=== PATIENT | male | born 1965 | race African-American/Black ===

== ENCOUNTER 2017-06-03 19:18 | Inpatient (IN) | payer OTHER ==
[~2017-06-03] VITALS: Ht 182.9 cm; Wt 97.1 kg
[2017-06-03 22:05] LABS: BASOPHIL % 0.4 % (0-2); PLATELET COUNT 192 x10^3mcL (130-400); RED CELL DISTRIBUTION WIDTH 14.4 % (11.5-14.5)
[2017-06-03 22:14] LABS: AMPHETAMINE QUAL UR NONE DETECTED (NEG <=1000)
[2017-06-03 22:15] LABS: CALCIUM 8.3 mg/dL (8.5-10.1); CARBON DIOXIDE 27.6 mmol/L (21-32); CHLORIDE SERUM 106 mmol/L (98-107); CREATININE SERUM 0.8 mg/dL (0.7-1.3); GFR1 > 60 mL/min; GLUCOSE SERUM 86 mg/dL (74-106); POTASSIUM SERUM 3.8 mmol/L (3.5-5.1); SODIUM SERUM 138 mmol/L (136-145)
[2017-06-03 22:28] LABS: ALKALINE PHOSPHATASE 44 U/L (46-116); ALT/SGPT 33 U/L (16-63); AST/SGOT 19 U/L (15-37); BILIRUBIN TOTAL 0.3 mg/dL (0.20-1.00); FREE T4 1.25 ng/dL (0.76-1.46); TOTAL PROTEIN, SERUM 6.6 g/dL (6.4-8.2)
[2017-06-03 22:30] LABS: ALBUMIN 3.3 g/dL (3.4-5.0)
[2017-06-04] MEDS ORDERED: COG1 PO (03:51)
[2017-06-04] MEDS ORDERED: ZYPREXA5 M1 PO (03:52)
[2017-06-04] MEDS ORDERED: RISPERDAL2 M1 PO (03:53)
[2017-06-04] MEDS ORDERED: TRAZODONE50 M1 PO (03:54)
[2017-06-04] MEDS ORDERED: ZOLOFT50 MG PO (03:57)
[2017-06-04 05:37] LABS: CHOLESTEROL/HDL RATIO 3.7; MAGNESIUM 1.8 mg/dL (1.8-2.4); PHOSPHOROUS 4.6 mg/dL (2.5-4.9)
[2017-06-04 05:40] LABS: T3 TOTAL 0.99 ng/mL
[2017-06-04 05:51] LABS: FREE T4 1.15 ng/dL (0.76-1.46); FREE THYROXINE INDEX 2.6 ug/dL (1.4-4.5); T4(THYROXINE) 7.5 ug/dL (4.7-13.3)
[2017-06-04 18:54] VITALS: BP 136/77
[2017-06-04 21:37] VITALS: BP 116/63
[2017-06-05 05:49] VITALS: BP 116/69
[2017-06-05 07:33] LABS: BASOPHIL % 0.5 % (0-2); PLATELET COUNT 172 x10^3mcL (130-400); RED CELL DISTRIBUTION WIDTH 14.1 % (11.5-14.5)
[2017-06-05 09:20] VITALS: BP 115/67
[2017-06-05 09:45] LABS: CALCIUM 8.1 mg/dL (8.5-10.1); CARBON DIOXIDE 25.6 mmol/L (21-32); CHLORIDE SERUM 109 mmol/L (98-107); CREATININE SERUM 0.9 mg/dL (0.7-1.3); GFR1 > 60 mL/min; GLUCOSE SERUM 82 mg/dL (74-106); MAGNESIUM 1.8 mg/dL (1.8-2.4); PHOSPHOROUS 4.2 mg/dL (2.5-4.9); POTASSIUM SERUM 4.3 mmol/L (3.5-5.1); SODIUM SERUM 143 mmol/L (136-145)
[2017-06-05 21:00] VITALS: BP 124/65
[2017-06-06 06:33] VITALS: BP 129/80
[2017-06-06 07:37] LABS: BASOPHIL % 0.7 % (0-2); PLATELET COUNT 173 x10^3mcL (130-400); RED CELL DISTRIBUTION WIDTH 14.1 % (11.5-14.5)
[2017-06-06 07:40] VITALS: BP 110/57
[2017-06-06 07:54] LABS: CALCIUM 7.8 mg/dL (8.5-10.1); CARBON DIOXIDE 24.6 mmol/L (21-32); CHLORIDE SERUM 108 mmol/L (98-107); CREATININE SERUM 0.8 mg/dL (0.7-1.3); GFR1 > 60 mL/min; GLUCOSE SERUM 83 mg/dL (74-106); POTASSIUM SERUM 3.9 mmol/L (3.5-5.1); SODIUM SERUM 140 mmol/L (136-145)
[2017-06-06 08:51] VITALS: Ht 182.9 cm; Wt 97.1 kg
[2017-06-06 16:45] VITALS: BP 111/71
[2017-06-06 21:10] VITALS: BP 120/78
[2017-06-07 05:47] VITALS: BP 109/58
[2017-06-07 11:10] VITALS: BP 107/63
[2017-06-07 18:10] VITALS: BP 122/77
[2017-06-07 21:30] VITALS: BP 130/84
[2017-06-08 06:30] LABS: BASOPHIL % 0.4 % (0-2); PLATELET COUNT 174 x10^3mcL (130-400)
[2017-06-08 06:43] LABS: RED CELL DISTRIBUTION WIDTH 14.8 % (11.5-14.5)
[2017-06-08 06:44] VITALS: BP 113/72
[2017-06-08 06:51] LABS: CALCIUM 8.4 mg/dL (8.5-10.1); CARBON DIOXIDE 26.2 mmol/L (21-32); CHLORIDE SERUM 111 mmol/L (98-107); CREATININE SERUM 0.9 mg/dL (0.7-1.3); GFR1 > 60 mL/min; GLUCOSE SERUM 94 mg/dL (74-106); POTASSIUM SERUM 4.3 mmol/L (3.5-5.1); SODIUM SERUM 147 mmol/L (136-145)
[2017-06-08 10:00] VITALS: BP 126/71
[2017-06-08 12:35] VITALS: BP 102/67
[2017-06-08 17:34] VITALS: BP 116/75
[2017-06-08 21:29] VITALS: BP 110/56
[2017-06-09 06:03] VITALS: BP 123/74
[2017-06-09 21:35] VITALS: BP 122/64
[2017-06-10 06:22] VITALS: BP 105/58
[2017-06-10 09:23] VITALS: BP 137/84
[2017-06-10 20:41] VITALS: BP 122/72
[2017-06-11 06:14] VITALS: BP 107/71
[2017-06-11 08:49] VITALS: BP 101/77
[2017-06-11 13:20] VITALS: BP 111/56
[2017-06-11 17:26] VITALS: BP 126/85
[2017-06-12 08:37] VITALS: BP 134/89
[2017-06-12 16:04] VITALS: BP 112/66
[2017-06-12 21:55] VITALS: BP 130/84
[2017-06-13 01:05] VITALS: BP 130/84
[2017-06-13 01:11] LABS: CALCIUM 8.2 mg/dL (8.5-10.1); CARBON DIOXIDE 27.2 mmol/L (21-32); CHLORIDE SERUM 105 mmol/L (98-107); GFR1 > 60 mL/min; GLUCOSE SERUM 115 mg/dL (74-106); POTASSIUM SERUM 4.2 mmol/L (3.5-5.1); SODIUM SERUM 141 mmol/L (136-145)
== END 2017-06-13 05:25 | DRG 750 ==
LOC: ED 19:18 → MU 06-04 17:25
PROVIDERS: Emergency Medicine; Family Medicine; Family Medicine Sports Medicine; Student in an Organized Health Care Education/Training Program
DX: F25.0 Schizoaffective disorder, bipolar type (principal); N17.0 Acute kidney failure with tubular necrosis; G93.40 Encephalopathy, unspecified; E44.0 Moderate protein-calorie malnutrition; E87.8 Other disorders of electrolyte and fluid balance, not elsewhere classified; R45.851 Suicidal ideations; Z91.14 Patient's other noncompliance with medication regimen; B19.20 Unspecified viral hepatitis C without hepatic coma; Z68.28 Body mass index [BMI] 28.0-28.9, adult; E83.51 Hypocalcemia
CPT/HCPCS: 83880; 84439; G0480; J7030; Q0092; Q0177